=== PATIENT | male | born 1965 | race Caucasian/White ===

== ENCOUNTER 2019-06-20 09:38 | Day surgery (SDC) | payer MEDICAID ==
[2019-06-20] MEDS ORDERED: FENTANYL PF 100MCG/2ML VIAL IV ONE (09:39)
[2019-06-20] MEDS ORDERED: PROPOFOL 10 MG/ML VIAL IV ONE (09:39)
[2019-06-20] MEDS ORDERED: LIDOCAINE 2% MDV (20MG/ML) 20ML VIAL IV ONE (09:39)
--- NOTE | 2019-06-21 10:00 | Operative Note ---
OPERATION: 1. ESOPHAGOGASTRODUODENOSCOPY with biopsy. 2. COLONOSCOPY with cold snare and hemoclip application. PREOPERATIVE DIAGNOSIS: Heme-positive stool. POSTOPERATIVE DIAGNOSES: 1. LA grade D esophagitis with questionable associated Degroot's. 2. Hiatal hernia. 3. Antral ulcerations. 4. Mild sigmoid diverticulosis. 5. Normal sigmoid anastomosis. 6. Distal sigmoid colon polyp. PREPARATION QUALITY: Good to excellent. ESTIMATED BLOOD LOSS: Minimum. COMPLICATIONS: None apparent. SPECIMENS: Distal sigmoid colon polyp and gastric biopsies. PROCEDURE: After informed consent was obtained from the patient, he was placed in the left lateral decubitus position in the endoscopy suite, sedated and monitored by the department of anesthesia. A well-lubricated [id number] gastroscope was placed in the posterior oropharynx under direct visualization and passed to the proximal, mid, and distal esophagus. The distal esophagus demonstrated ulcerative changes which extended to the GE junction. There were perhaps some long-segment Degroot's changes but this was difficult to delineate given the inflammation noted. There was a small- to moderate-size hiatal hernia. The hiatal hernia itself was otherwise unremarkable. The antrum demonstrated multiple ulcerations and erosions. The duodenal bulb and sweep were unremarkable. J-turn views of the proximal stomach again revealed a hiatal hernia. The gastric body was unremarkable in forward and in J-turn views. The endoscope was straightened. Antral biopsies were obtained. The endoscope was retracted through the course of the esophagus with no new findings noted. Biopsies were not obtained from the esophagus given concern over possible inflammatory changes which could confuse and be mistaken for dysplasia. Digital rectal exam was unremarkable. A well-lubricated [id number] colonoscope was inserted into the rectum and advanced to the cecum. Preparation quality was good to excellent. The cecum, cecal bulb, ileocecal valve, appendiceal orifice, ascending colon, transverse colon, and descending colon were unremarkable. The sigmoid colon demonstrated a few scattered diverticula. The anastomosis appeared unremarkable. Just distal to the anastomosis, there was a 5 mm sessile polyp removed with a cold snare. There was a small amount of persistent bleeding which was treated with a hemoclip. No persistent bleeding was noted. The rectum was unremarkable in forward and J-turn views otherwise. The endoscope was straightened, the rectal ampulla deflated, and the endoscope was removed. RECOMMENDATIONS: The patient should be on a [id number] PPI. I will repeat his upper endoscopy in 8 weeks to assess healing. He should undergo repeat colonoscopy in 3-5 years pending tissue histology and follow a high-fiber diet. As always, thank you for allowing me to participate in the healthcare of your patients. MOLLY
== END 2019-06-20 11:30 | disposition home or self-care (01) ==
LOC: HOP 09:38
PROVIDERS: ATTEND Internal Medicine Gastroenterology
DX: K25.9 Gastric ulcer, unspecified as acute or chronic, without hemorrhage or perforation (principal); K20.8 Other esophagitis; K57.30 Diverticulosis of large intestine without perforation or abscess without bleeding; K63.5 Polyp of colon; K44.9 Diaphragmatic hernia without obstruction or gangrene; E78.00 Pure hypercholesterolemia, unspecified; J45.909 Unspecified asthma, uncomplicated; Z79.82 Long term (current) use of aspirin
CPT/HCPCS: 43239; 45385; 00813; J3010